=== PATIENT | male | born 1965 | race African-American/Black ===

== ENCOUNTER 2017-10-24 15:08 | Inpatient (IN) | payer MEDICARE, MEDICAID ==
[~2017-10-24] VITALS: Ht 172.7 cm; Wt 122.5 kg
[~2017-10-24 15:08] MED LIST: ATOR20TA86 PO; DIPH50 PO; HALO10 PO; LISI-661 PO; METF500T4 PO
[2017-10-24] MEDS ORDERED: HALOPERIDOL 5 MG TABLET PO PRN (17:00)
[2017-10-24] MEDS ORDERED: ZOLPIDEM TARTRATE 10 MG TABLET PO PRN (17:00)
[2017-10-24] MEDS ORDERED: -PHARMACY VACCINE NOTE- MISC ONE (17:15)
[2017-10-24 17:43] VITALS: BP 151/98
[2017-10-24 17:47] LABS: GLUCOMETER DEV NAME(LOC) BV3N5; GLUCOSE,POINT OF CARE 113 MG/DL (70-110)
[2017-10-24] MEDS ORDERED: GLUCAGON,HUMAN RECOMBINANT 1 MG VIAL IM PRN (18:30)
[2017-10-24] MEDS ORDERED: LISI-660 PO (18:38)
[2017-10-24] MEDS: LISINOPRIL 5 MG TABLET PO SCH (18:45)
[2017-10-24] MEDS: ATORVASTATIN CALCIUM 20 MG TABLET PO SCH (20:40)
[2017-10-24 20:57] LABS: GLUCOMETER DEV NAME(LOC) BV3N5; GLUCOSE,POINT OF CARE 162 MG/DL (70-110)
[2017-10-24] MEDS: INSULIN LISPRO 100 UNITS/ML SQ PRN (20:58)
[2017-10-25 01:16] VITALS: BP 113/70
[2017-10-25 06:17] LABS: GLUCOMETER DEV NAME(LOC) BV3N5; GLUCOSE,POINT OF CARE 83 MG/DL (70-110)
[2017-10-25] MEDS ORDERED: MetFORMIN HCL 500 MG TABLET PO SCH (07:00)
[2017-10-25 08:05] VITALS: BP 132/86
[2017-10-25] MEDS: LISINOPRIL 5 MG TABLET PO SCH (08:13)
[2017-10-25] MEDS: HALOPERIDOL 5 MG TABLET PO SCH ×2 (08:13→21:09)
[2017-10-25 08:23] LABS: BASOPHILS % (AUTO) 0.3 % (0.0-2.0); EOSINOPHILS % (AUTO) 2.1 % (1.0-6.0); HEMATOCRIT 37.2 % (41-53); HEMOGLOBIN 12.6 g/dL (13.5-17.5); LYMPHOCYTES # (AUTO) 1.8 K/uL (1.0-4.8); LYMPHOCYTES % (AUTO) 19.9 % (22.0-44.0); MEAN CORPUSCULAR HEMOGLOBIN 29.9 pg (26.0-34.0); MEAN CORPUSCULAR HGB CONC 33.8 G/dL (31.0-37.0); MEAN CORPUSCULAR VOLUME 89 fL (80-100); MONOCYTES # (AUTO) 0.8 K/uL (0.1-1.0); MONOCYTES % (AUTO) 8.2 % (2.0-9.0); NEUTROPHILS # (AUTO) 6.4 K/uL (1.8-7.7); NEUTROPHILS % (AUTO) 69.5 % (40.0-70.0); PLATELET COUNT (AUTO) 138 K/uL (150-450); RED BLOOD CELL COUNT(AUTO) 4.21 MIL/uL (4.50-5.90); RED CELL DISTRIBUTION WIDTH 14.1 % (11.5-14.5)
[2017-10-25 08:40] LABS: HEMOGLOBIN A1C 6.1 % (4.5-6.2)
[2017-10-25 08:57] LABS: ALANINE AMINOTRANSFERASE 33 U/L (12-78); ALBUMIN 3.3 g/dL (3.4-5.0); ALKALINE PHOSPHATASE 114 U/L (46-116); ANION GAP 9 mmol/L (8-16); ASPARTATE AMINOTRANSFERASE 24 U/L (15-37); BILIRUBIN,TOTAL 0.7 mg/dL (0.1-1.0); CALCIUM, TOTAL 8.9 mg/dL (8.8-10.5); CARBON DIOXIDE 28 mmol/L (22-29); CHLORIDE 102 mmol/L (98-107); CHOL/HDL RATIO 3.4 (4.2-7.3); CHOLESTEROL 194 mg/dL (131-200); CREATININE 0.81 mg/dL (0.60-1.30); FREE T4 (FREE THYROXINE) 0.81 ng/dL (0.76-1.46); GLOMERULAR FILTR. RATE CALC > 60 mL/min (>60); GLUCOSE,RANDOM 91 mg/dL (70-110); HDL CHOLESTEROL 57 mg/dL (40-60); LDL CHOL (CALC.) 123 mg/dL (0-130); POTASSIUM 3.7 mmol/L (3.5-5.1); SODIUM SERUM 139 mmol/L (136-145); THYROID STIMULATING HORMONE 1.24 uIU/mL (0.36-3.74); TOTAL PROTEIN, SERUM 7.2 g/dL (6.4-8.2); TRIGLYCERIDES 70 mg/dL (15-150); UREA NITROGEN, BLOOD 16 mg/dL (7-18)
[2017-10-25 11:43] LABS: GLUCOMETER DEV NAME(LOC) BV3N5; GLUCOSE,POINT OF CARE 100 MG/DL (70-110)
[2017-10-25 16:06] VITALS: BP 146/81
[2017-10-25] MEDS: MetFORMIN HCL 500 MG TABLET PO SCH (16:59)
[2017-10-25 17:12] LABS: GLUCOMETER DEV NAME(LOC) BV3N5; GLUCOSE,POINT OF CARE 120 MG/DL (70-110)
[2017-10-25] MEDS: ATORVASTATIN CALCIUM 20 MG TABLET PO SCH (21:09)
[2017-10-25 21:33] LABS: GLUCOMETER DEV NAME(LOC) BV3N5; GLUCOSE,POINT OF CARE 117 MG/DL (70-110)
[2017-10-26] MEDS: MetFORMIN HCL 500 MG TABLET PO SCH ×2 (06:18→16:18)
[2017-10-26 06:21] VITALS: BP 139/84
[2017-10-26 06:22] LABS: GLUCOMETER DEV NAME(LOC) BV3N5; GLUCOSE,POINT OF CARE 91 MG/DL (70-110)
[2017-10-26] MEDS: LORazepam 2 MG TABLET PO PRN ×2 (08:04→16:18)
[2017-10-26] MEDS: HALOPERIDOL 5 MG TABLET PO SCH ×2 (08:04→21:01)
[2017-10-26] MEDS: LISINOPRIL 5 MG TABLET PO SCH (08:04)
[2017-10-26 08:45] VITALS: BP 149/89
[2017-10-26 11:02] LABS: GLUCOMETER DEV NAME(LOC) BV3N5; GLUCOSE,POINT OF CARE 103 MG/DL (70-110)
[2017-10-26 16:20] VITALS: BP 134/79
[2017-10-26 17:06] LABS: GLUCOMETER DEV NAME(LOC) BV3N5; GLUCOSE,POINT OF CARE 100 MG/DL (70-110)
[2017-10-26] MEDS ORDERED: IBUPROFEN 600 MG TABLET PO PRN (20:30)
[2017-10-26] MEDS ORDERED: LOPERAMIDE HCL 2 MG CAPSULE PO PRN (20:30)
[2017-10-26] MEDS ORDERED: MAG HYDROX/AL HYDROX/SIMETH ES 30 ML SUSPENSION UDCUP PO PRN (20:30)
[2017-10-26] MEDS ORDERED: ACETAMINOPHEN 325 MG TABLET PO PRN (20:30)
[2017-10-26] MEDS ORDERED: CloNIDine HCL 0.1 MG TABLET PO PRN (20:30)
[2017-10-26] MEDS ORDERED: BACITRACIN 28.4 GM OINTMENT TP PRN (20:30)
[2017-10-26] MEDS ORDERED: MAGNESIUM HYDROXIDE SUSPENSION 30 ML UDCUP PO PRN (20:30)
[2017-10-26] MEDS ORDERED: BENZOCAINE/MENTHOL LOZENGE MM PRN (20:30)
[2017-10-26] MEDS ORDERED: ONDANSETRON HCL 4 MG TABLET PO PRN (20:30)
[2017-10-26] MEDS ORDERED: PETROLATUM,WHITE 71 GM JELLY TP PRN (20:30)
[2017-10-26] MEDS: ATORVASTATIN CALCIUM 20 MG TABLET PO SCH (21:01)
[2017-10-26] MEDS: INSULIN LISPRO 100 UNITS/ML SQ PRN (21:04)
[2017-10-26 21:22] LABS: GLUCOMETER DEV NAME(LOC) BV3N5; GLUCOSE,POINT OF CARE 142 MG/DL (70-110)
[2017-10-27 01:10] VITALS: BP 149/92
[2017-10-27 05:28] LABS: GLUCOMETER DEV NAME(LOC) BV3N5; GLUCOSE,POINT OF CARE 88 MG/DL (70-110)
[2017-10-27] MEDS: MetFORMIN HCL 500 MG TABLET PO SCH ×2 (06:55→16:33)
[2017-10-27] MEDS: HALOPERIDOL 5 MG TABLET PO SCH ×2 (08:05→20:52)
[2017-10-27] MEDS: OMEPRAZOLE 20 MG CAPSULE PO SCH (08:05)
[2017-10-27] MEDS: DOCUSATE SODIUM 100 MG CAPSULE PO SCH (08:05)
[2017-10-27] MEDS: LORazepam 2 MG TABLET PO PRN ×2 (08:05→16:33)
[2017-10-27] MEDS: LISINOPRIL 5 MG TABLET PO SCH (08:05)
[2017-10-27 08:11] VITALS: BP 147/94
[2017-10-27 09:47] VITALS: BP 151/95
[2017-10-27 10:40] LABS: CHOL/HDL RATIO 3.6 (4.2-7.3); THYROID STIMULATING HORMONE 1.69 uIU/mL (0.36-3.74)
[2017-10-27 10:48] LABS: % IRON SATURATION 18.5 % (30-44)
[2017-10-27 11:27] LABS: GLUCOMETER DEV NAME(LOC) BV3N5; GLUCOSE,POINT OF CARE 108 MG/DL (70-110)
[2017-10-27 11:49] VITALS: BP 148/89
[2017-10-27 17:22] LABS: GLUCOMETER DEV NAME(LOC) BV3N5; GLUCOSE,POINT OF CARE 130 MG/DL (70-110)
[2017-10-27 20:00] VITALS: BP 163/97
[2017-10-27] MEDS ORDERED: LISINOPRIL 10 MG TABLET PO ONE (20:00)
[2017-10-27] MEDS: ATORVASTATIN CALCIUM 20 MG TABLET PO SCH (20:52)
[2017-10-27 21:00] VITALS: BP 162/98
[2017-10-27 21:12] LABS: GLUCOMETER DEV NAME(LOC) BV3N5; GLUCOSE,POINT OF CARE 105 MG/DL (70-110)
[2017-10-28 05:57] VITALS: BP 168/98
[2017-10-28 06:18] LABS: GLUCOMETER DEV NAME(LOC) BV3N5; GLUCOSE,POINT OF CARE 84 MG/DL (70-110)
[2017-10-28] MEDS: MetFORMIN HCL 500 MG TABLET PO SCH (07:09)
[2017-10-28 08:37] VITALS: BP 137/93
[2017-10-28] MEDS: DOCUSATE SODIUM 100 MG CAPSULE PO SCH (08:56)
[2017-10-28] MEDS: OMEPRAZOLE 20 MG CAPSULE PO SCH (08:56)
[2017-10-28] MEDS: HALOPERIDOL 5 MG TABLET PO SCH (08:56)
[2017-10-28] MEDS ORDERED: LISINOPRIL 20 MG TABLET PO SCH (09:00)
[2017-10-28 11:48] LABS: GLUCOMETER DEV NAME(LOC) BV3N5; GLUCOSE,POINT OF CARE 94 MG/DL (70-110)
[2017-10-28] MEDS ORDERED: HALOPERIDOL 5 MG TABLET PO SCH (21:00)
== END 2017-10-28 13:30 | disposition home or self-care (01) | DRG 885 ==
LOC: B3A 17:03
DX: F20.1 Disorganized schizophrenia (principal); D69.6 Thrombocytopenia, unspecified; Z68.41 Body mass index [BMI] 40.0-44.9, adult; E11.9 Type 2 diabetes mellitus without complications; Z59.0 Homelessness; F12.90 Cannabis use, unspecified, uncomplicated; F17.210 Nicotine dependence, cigarettes, uncomplicated; F94.0 Selective mutism; D64.9 Anemia, unspecified; E66.9 Obesity, unspecified; I10 Essential (primary) hypertension; J44.9 Chronic obstructive pulmonary disease, unspecified; K21.9 Gastro-esophageal reflux disease without esophagitis; K59.00 Constipation, unspecified; E78.5 Hyperlipidemia, unspecified; Z71.51 Drug abuse counseling and surveillance of drug abuser; Z91.19 Patient's noncompliance with other medical treatment and regimen; Z88.8 Allergy status to other drugs, medicaments and biological substances; Z79.899 Other long term (current) drug therapy
CPT/HCPCS: 82306; 82962; 83036; 83540; 83550; 84439; 84443; 86592; 87081